=== PATIENT | male | born 1995 | race Caucasian/White ===

== ENCOUNTER 2017-06-01 14:15 | Emergency (ER) | payer OTHER ==
--- NOTE | 2017-06-01 15:53 | XRay Report ---
LEFT HAND RADIOGRAPHS INDICATION: Injury. COMPARISON: None similar at this institution. FINDINGS: AP, lateral and oblique left hand radiographs demonstrate fifth PIP joint dislocation with the proximal phalanx anterior relative to the middle. Preserved DIP joint. Mild fifth digit soft tissue swelling. Normal remainder exam. CONCLUSION: Left fifth digit PIP joint dislocation, as described. No acute fracture evident. Thank you for the opportunity to participate in this patient's care.
[2017-06-01] MEDS ORDERED: XYLOCAINE 1% 20 mL INFILTRATI ONE (21:03)
[2017-06-01] MEDS ORDERED: MOTRIN PO ONE (23:40)
[2017-06-01] MEDS ORDERED: TYLENOL PO ONE (23:40)
--- NOTE | 2017-06-01 23:41 | Emergency Department Report ---
ED General Adult HPI - General Chief complaint: Extremity Injury, Upper Stated complaint: HAND INJURY Time Seen by Provider: 06/01/17 21:00 Source: patient Mode of arrival: Ambulatory Limitations: Language Barrier - History of Present Illness Initial comments: Patient is a 21-year-old male no significant past medical history who presents with left pinky pain. Patient states that he was playing soccer and the ball hit his left pinky. This occurred yesterday the pain is a 9 out of 10 is an achy type of pain that radiates down to his wrist. Moving makes the pain worse that he makes it better. Patient states that nothing he is done has made the pain better. The pain is constant and is a throbbing type of pain. 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 - Related Data Previous Rx's Medication Instructions Recorded Last Taken Type Ibuprofen [Motrin] 400 mg PO Q8H PRN #30 tablet 06/01/17 Unknown Rx Allergies Allergy/AdvReac Type Severity Reaction Status Date / Time No Known Allergies Allergy Unverified 06/01/17 14:28 ED Review of Systems ROS: Stated complaint: HAND INJURY Other details as noted in HPI Constitutional: denies: chills, fever Eyes: denies: eye pain, eye discharge, vision change ENT: denies: ear pain, throat pain Respiratory: denies: cough, shortness of breath, wheezing Cardiovascular: denies: chest pain, palpitations Endocrine: no symptoms reported Gastrointestinal: denies: abdominal pain, nausea, diarrhea Genitourinary: denies: urgency, dysuria Musculoskeletal: other (wrist pain ). denies: back pain, joint swelling, arthralgia Skin: denies: rash, lesions Neurological: denies: headache, weakness, paresthesias Psychiatric: denies: anxiety, depression Hematological/Lymphatic: denies: easy bleeding, easy bruising ED Past Medical Hx - Past Medical History Previous Medical History?: No - Surgical History Past Surgical History?: No - Social History Smoking Status: Current Some Day Smoker Substance Use Type: None - Medications Home Medications: Home Medications Medication Instructions Recorded Confirmed Last Taken Type Ibuprofen [Motrin] 400 mg PO Q8H PRN #30 tablet 06/01/17 Unknown Rx ED Physical Exam - General Limitations: Language Barrier General appearance: alert, in no apparent distress - Head Head exam: Present: atraumatic, normocephalic - Eye Eye exam: Present: normal appearance - ENT ENT exam: Present: mucous membranes moist - Neck Neck exam: Present: normal inspection - Respiratory Respiratory exam: Present: normal lung sounds bilaterally. Absent: respiratory distress - Cardiovascular Cardiovascular Exam: Present: regular rate, normal rhythm. Absent: systolic murmur, diastolic murmur, rubs, gallop - GI/Abdominal GI/Abdominal exam: Present: soft, normal bowel sounds - Rectal Rectal exam: Present: deferred - Extremities Exam Extremities exam: Present: other (left pinky deformity +2 radial and ulnar pulses) - Back Exam Back exam: Present: normal inspection - Neurological Exam Neurological exam: Present: alert, oriented X3 - Psychiatric Psychiatric exam: Present: normal affect, normal mood - Skin Skin exam: Present: warm, dry, intact, normal color. Absent: rash ED Course Vital Signs 06/01/17 14:28 Temperature 98.4 F Pulse Rate 103 H Respiratory 16 Rate Blood Pressure 133/77 O2 Sat by Pulse 98 Oximetry - Orthopedic Joint Reduction Joint #1 Consent Obtained: verbal consent Time Out Performed: Yes Side: left Joint Reduction Location: finger Analgesia: digital block Local Anesthetic Used: Lidocaine 1% Amount of Anesthetic Used (mls): 8 Technique Used: direct manipulation Post-Reduction Neuro Exam: intact Post-Reduction Vascular Exam: intact Post Reduction X-Ray Obtained: Yes Post Reduction X-Ray Results: reduced Splint Applied: Yes Patient Tolerated Procedure: well ED Medical Decision Making - Radiology Data Radiology results: report reviewed, image reviewed X-ray Left hand: Shows PIP dislocation of the fifth digit no acute fracture. X-ray left hand Post reduction: shows reduced PIP joint - Medical Decision Making Chief medical diagnosis: Left fifth digit PIP dislocation Differential medical diagnosis: distal tuffs fracture, metacarpal fracture I will get x-ray, oral pain medication, digital block and will reduce patient's left fifth digit Patient's left fifth digit is reduced his pain has improved I will put a finger splint on patient and also patient home with follow-up for a PCP. Discussed follow patient patient agrees with plan additional verbal discharge instructions were given. Critical care attestation.: If time is entered above; I have spent that time in minutes in the direct care of this critically ill patient, excluding procedure time. ED Disposition Clinical Impression: Pain in finger of left hand Finger dislocation Qualifiers: Encounter type: initial encounter Qualified Code(s): S63.259A - Unspecified dislocation of unspecified finger, initial encounter Disposition: DC-01 TO HOME OR SELFCARE Is pt being admited?: No Does the pt Need Aspirin: No Condition: Stable Instructions: Finger Dislocation (ED) Prescriptions: Ibuprofen [Motrin] 400 mg PO Q8H PRN #30 tablet PRN Reason: Pain Referrals: NOHEMI SLADE MD [Staff Physician] - 3-5 Days Print Language: LITHUANIAN
[2017-06-02 00:19] VITALS: BP 110/72
--- NOTE | 2017-06-02 00:29 | XRay Report ---
FINAL REPORT EXAM: XR FINGER(S) 1V LT HISTORY: post reduction COMPARISON: None available. FINDINGS: Single image of the left hand obtained. Gross normal alignment of the interphalangeal joints, MCP joints and carpometacarpal joints on this single image. No prior exams are made available for comparison. IMPRESSION: Gross normal anatomic alignment of the joint spaces on this single view. No prior exams are available for comparison.
== END 2017-06-02 00:19 | disposition home or self-care (01) ==
LOC: EDSEX → ED 14:15
DX: S63.257A Unspecified dislocation of left little finger, initial encounter (principal); F17.200 Nicotine dependence, unspecified, uncomplicated; W21.02XA Struck by soccer ball, initial encounter; Y93.66 Activity, soccer; Y99.8 Other external cause status; Y92.89 Other specified places as the place of occurrence of the external cause